=== PATIENT | male | born 1970 | race African-American/Black ===

== ENCOUNTER → 2017-12-26 | Outpatient (CLI) | payer MEDICARE, OTHER ==
[~2017-12-26] MED LIST: AMIT25TA9 PO; BACL10TA PO; CARI350 PO; FIORINAL PO; GABA-533 PO; HYD25 PO; OXYC10 PO; PERCT10 PO; SILD25 PO; SIMV-261 PO; TRAM50TA4 PO; TRAZ-144 PO
== END | disposition home or self-care (01) ==
LOC: RADPV 13:22
PROVIDERS: ATTEND Specialist
DX: M16.0 Bilateral primary osteoarthritis of hip (principal)
CPT/HCPCS: 73521

== ENCOUNTER → 2018-04-03 | Outpatient (CLI) | payer MEDICARE, OTHER | END | disposition home or self-care (01) | LOC: RADPV 13:22 | PROVIDERS: ATTEND Specialist | DX: M53.3 Sacrococcygeal disorders, not elsewhere classified (principal) | CPT/HCPCS: 72220 ==

== ENCOUNTER → 2018-09-11 | Outpatient (CLI) | payer MEDICARE, OTHER ==
[~2018-09-11] MED LIST changes: -TRAZ-144 PO; +TRAZ-219 PO
== END | disposition home or self-care (01) ==
LOC: RADMN 12:44
PROVIDERS: ATTEND Specialist
DX: M43.22 Fusion of spine, cervical region (principal); M54.12 Radiculopathy, cervical region
CPT/HCPCS: 72125